=== PATIENT | male | born 1980 | race African-American/Black ===

== ENCOUNTER 2020-09-01 23:29 | Emergency (ER) | payer SELFPAY ==
[~2020-09-01] VITALS: Ht 182.9 cm; Wt 145.1 kg
[~2020-09-01 23:29] MED LIST: ATIVAN1 MG PO; PANTOPRAZOLE SO40 MG PO
[2020-09-01] MEDS ORDERED: IBUPROFEN 600 MG TAB PO ONE (23:45)
[2020-09-01] MEDS ORDERED: ACETAMINOPHEN 325 MG TAB PO ONE (23:45)
[2020-09-01] MEDS ORDERED: ONDANSETRON HCL 4 MG ORAL DISINTEGRATING TAB PO ONE (23:45)
[2020-09-01] MEDS ORDERED: ACETAMINOPHEN 325 MG TAB ONE (23:50)
[2020-09-01] MEDS ORDERED: ONDANSETRON HCL INJ 2MG/ML 2ML 2 MG/ML VIAL ONE (23:50)
[2020-09-01] MEDS ORDERED: IBUPROFEN 600 MG TAB ONE (23:50)
[2020-09-01] MEDS ORDERED: SODIUM CHLORIDE 0.9% 1000ML 0 ML ONE (23:51)
[2020-09-01] MEDS ORDERED: THERAFLU MS SE1 EACH PO (23:53)
[2020-09-01] MEDS ORDERED: ZOFRAN4 MG PO (23:53)
[2020-09-01] MEDS ORDERED: PANTOPRAZOLE SO40 MG PO (23:53)
[2020-09-01] MEDS ORDERED: IBUPROFEN IB200 MG PO (23:53)
== END 2020-09-02 00:35 | disposition home or self-care (01) ==
LOC: FSED 23:40
DX: R50.9 Fever, unspecified (principal); B34.9 Viral infection, unspecified
CPT/HCPCS: 99283; Q0162; J2405; J7030

== ENCOUNTER 2021-06-19 13:01 | Observation (INO) | payer OTHER ==
[~2021-06-19] VITALS: Ht 182.9 cm; Wt 136.1 kg
[~2021-06-19 13:01] MED LIST changes: +IBUPROFEN IB200 MG PO; +THERAFLU MS SE1 EACH PO; +ZOFRAN4 MG PO
[2021-06-19] MEDS ORDERED: DILTIAZEM HCL VIAL 5 ML ONE (13:25)
[2021-06-19] MEDS ORDERED: ASPIRIN 81 MG CHEW TAB PO ONE (14:30)
[2021-06-19] MEDS ORDERED: ASPIRIN EC81 MG PO (14:42)
[2021-06-19] MEDS ORDERED: DILTIAZEM HCL 5 MG/ML 5 ML VIAL IV STA (14:58)
[2021-06-19] MEDS ORDERED: ASPIRIN 81 MG CHEW TAB ONE (15:05)
[2021-06-19 16:08] VITALS: BP 157/104
[2021-06-19] MEDS: METOPROLOL TARTRATE 25 MG TAB PO SCH (16:38)
[2021-06-19] MEDS: AMIODARONE HCL 200 MG TAB PO SCH (16:38)
[2021-06-19 16:40] VITALS: BP 157/104
[2021-06-19 19:27] LABS: CREATINE KINASE MB 1.7 ng/mL (0-5.0)
[2021-06-19 19:39] VITALS: BP 139/96
[2021-06-19 20:36] VITALS: BP 139/96
[2021-06-20] VITALS (8 sets, daily range): BP systolic 110–150; BP diastolic 72–111
[2021-06-20 07:35] LABS: CREATINE KINASE MB 1.3 ng/mL (0-5.0)
[2021-06-20] MEDS ORDERED: DEXTROSE 50% SYRINGE 50 ML IV PRN (08:45)
[2021-06-20] MEDS ORDERED: SIMETHICONE 80 MG CHEW PO PRN (08:45)
[2021-06-20] MEDS ORDERED: ACETAMINOPHEN 325 MG TAB PO PRN (08:45)
[2021-06-20] MEDS ORDERED: ONDANSETRON HCL INJ 2MG/ML 2ML 2 MG/ML VIAL IV PRN (08:45)
[2021-06-20] MEDS ORDERED: DOCUSATE SODIUM 100 MG CAP PO PRN (08:45)
[2021-06-20] MEDS ORDERED: HYDRALAZINE HCL 20 MG/ML VIAL IV PRN (08:45)
[2021-06-20] MEDS ORDERED: BENZONATATE 100 MG CAP PO PRN (08:45)
[2021-06-20] MEDS ORDERED: LIDOCAINE 4% PATCH TP PRN (08:45)
[2021-06-20] MEDS ORDERED: DIPHENHYDRAMINE HCL 25 MG CAP PO PRN (08:45)
[2021-06-20] MEDS ORDERED: POTASSIUM CHLORIDE 20 MEQ TAB CR PO PRN (08:45)
[2021-06-20] MEDS ORDERED: ALBUTEROL/IPRATROPIUM 3 ML NEB NEB PRN (08:45)
[2021-06-20] MEDS ORDERED: TRAMADOL HCL 50 MG TAB PO PRN (08:45)
[2021-06-20] MEDS: AMIODARONE HCL 200 MG TAB PO SCH ×2 (09:11→17:14)
[2021-06-20] MEDS: METOPROLOL TARTRATE 25 MG TAB PO SCH ×2 (09:11→17:14)
[2021-06-20 14:27] LABS: CREATINE KINASE MB 1.2 ng/mL (0-5.0)
[2021-06-20] MEDS: ENOXAPARIN SOD INJ 40 MG/0.4 ML SYR SC SCH (17:14)
[2021-06-20] MEDS ORDERED: MELATONIN 5 MG TABLET PO PRN (21:00)
[2021-06-21 00:14] VITALS: BP 127/87
[2021-06-21 05:13] VITALS: BP 137/93
[2021-06-21 06:33] LABS: BASOPHILS % 0.6 % (0.0-1.0); EOSINOPHILS # (AUTO) 0.2 (0.0-0.4); EOSINOPHILS % 2.2 % (0.0-6.0); HEMATOCRIT 43.2 % (38.2-49.6); HEMOGLOBIN 13.9 g/dL (14.0-18.0); LYMPHOCYTES # (AUTO) 1.6 (1.0-3.2); LYMPHOCYTES % 22.6 % (18.0-39.1); MEAN CORPUSCULAR HEMOGLOBIN 28.5 pg (28-32); MEAN CORPUSCULAR HGB CONC 32.2 g/dL (31-35); MEAN CORPUSCULAR VOLUME 88.5 fL (81-99); MONOCYTES # (AUTO) 0.8 (0.2-0.8); MONOCYTES % 11.5 % (4.4-11.3); NEUTROPHILS # (AUTO) 4.3 (2.1-6.9); NEUTROPHILS % 62.2 % (38.7-80.0); PLATELET COUNT 322 x10e3/uL (140-360); RED BLOOD COUNT 4.88 x10e6/uL (4.3-5.7); RED CELL DISTRIBUTION WIDTH 13.1 % (11.7-14.4)
[2021-06-21 06:56] LABS: ANION GAP 12.2 mmol/L (8-16); CALCIUM 8.8 mg/dL (8.4-10.2); CREATININE, SERUM 1.05 mg/dL (0.72-1.25); MAGNESIUM 2.1 MG/DL (1.3-2.1); PHOSPHORUS 4.1 MG/DL (2.3-4.7); POTASSIUM 4.2 mmol/L (3.5-5.1)
[2021-06-21 07:13] LABS: CHOL/HDL RATIO 4.9 (3.9-4.7)
[2021-06-21 07:13] LABS: THYROID STIMULATING HORMONE 1.788 uIU/mL (0.350-4.940)
[2021-06-21] MEDS ORDERED: PANTOPRAZOLE SOD 40 MG TABEC PO SCH (07:30)
[2021-06-21 08:00] VITALS: BP 138/91
[2021-06-21] MEDS: AMIODARONE HCL 200 MG TAB PO SCH ×2 (09:00→17:40)
[2021-06-21] MEDS: METOPROLOL TARTRATE 25 MG TAB PO SCH ×2 (10:00→17:40)
[2021-06-21 10:05] VITALS: BP 138/91
[2021-06-21 11:43] VITALS: BP 130/85
[2021-06-21] MEDS ORDERED: SODIUM CHLORIDE 0.9% 50ML 50 ML ONE (13:02)
[2021-06-21] MEDS ORDERED: IOPAMIDOL 370 MG/ML 200 ML INFUS..BTL INJ ONE (13:02)
[2021-06-21] MEDS ORDERED: AMIODARONE HCL200 MG PO (13:54)
[2021-06-21] MEDS ORDERED: AMIODARONE50 MG/1 M1 IV (13:54)
[2021-06-21] MEDS ORDERED: ASPIRIN325 MG PO (13:55)
[2021-06-21] MEDS ORDERED: METOPROLOL TART25 MG PO (13:55)
[2021-06-21 16:31] VITALS: BP 134/85
[2021-06-21] MEDS: ENOXAPARIN SOD INJ 40 MG/0.4 ML SYR SC SCH (17:40)
[2021-06-21] MEDS ORDERED: ELIQUIS5 MG PO (18:27)
== END 2021-06-21 19:15 | disposition home or self-care (01) ==
LOC: FSED 13:04 → ERHOLD 14:30 → MED/SURG 16:16
PROVIDERS: ADMIT Internal Medicine; ATTEND Internal Medicine
DX: I48.91 Unspecified atrial fibrillation (principal); Z79.01 Long term (current) use of anticoagulants; E66.01 Morbid (severe) obesity due to excess calories; Z68.41 Body mass index [BMI] 40.0-44.9, adult; G47.33 Obstructive sleep apnea (adult) (pediatric); Z20.822 Contact with and (suspected) exposure to COVID-19
CPT/HCPCS: 36415 ×3; 71260; 80048; 80053; 80061; 82550 ×2; 82553 ×2; 83036 ×2; 83735; 84100; 84443 ×2; 84484 ×2; 85025 ×2; 85379 ×2; 93005; 93306; 96374; 99284; G0378 ×3; J1650 ×2; Q9967; U0002